=== PATIENT | male | born 1965 | race Caucasian/White ===

== ENCOUNTER 2019-04-30 12:22 | Emergency (ER) | payer MEDICARE ==
[~2019-04-30] VITALS: Ht 185.4 cm; Wt 107.0 kg
[2019-04-30] MEDS ORDERED: SODIUM CHLORIDE FLUSH 10ML SYR IVF ONE (13:00)
--- NOTE | 2019-04-30 13:35 | NUR ---
to room 11
[2019-04-30 13:40] LABS: BASOPHILS # (AUTO) 0.07 x10^3/uL (0-0.1); BASOPHILS % (AUTO) 1 % (0-1); EOSINOPHILS # (AUTO) 0.06 x10^3/uL (0-0.4); EOSINOPHILS % (AUTO) 1 % (1-7); LYMPHOCYTES # (AUTO) 1.21 x10^3/uL (1-3.4); LYMPHOCYTES % (AUTO) 12 % (22-44); MD NO; MEAN CORPUSCULAR HEMOGLOBIN 29.1 pg (27.5-34.5); MEAN CORPUSCULAR HGB CONC 32.5 g/dL (33.2-36.2); MEAN CORPUSCULAR VOLUME 89.4 fL (81-97); MEAN PLATELET VOLUME 8.2 fL (7.4-10.4); MONOCYTES % (AUTO) 11 % (2-9); NEUTROPHILS # (AUTO) 7.39 x10^3/uL (1.8-6.8); NEUTROPHILS % (AUTO) 75 % (42-75); PLATELET COUNT 354 x10^3/uL (130-400); RED BLOOD COUNT 4.46 x10^6/uL (4.38-5.82); RED CELL DISTRIBUTION WIDTH 16.4 % (9.4-14.8)
--- NOTE | 2019-04-30 13:44 | NUR ---
BREAK RN: THIS IS A 54 YEAR OLD MALE WHO CAME FROM [facility] DUE TO ABCESSES. PT STATES HE HAD INFILTRATION AFTER AN ABLATION. LEFT INNER FORARM, 2 CM OPEN AREA, WITH INCREASE REDNESS AND SWELLING. RIGHT UPPER ARM, WITH 2 INCH REDNESS AND SWELLING. PT STATES HIS PAIN IS 10/10. REQUESTS PAIN MEDICATION. EXPLAINED NEED FOR MD TO SEE AND ORDER. PT VERBALIZED UNDERSTANDING
[2019-04-30 13:47] LABS: ALANINE AMINOTRANSFERASE 44 U/L (12-78); ALBUMIN 3.2 g/dL (3.4-5.0); ANION GAP 8 mmol/L (5-15); CALCIUM 8.7 mg/dL (8.5-10.1); CHLORIDE 105 mmol/L (98-107); CREATININE 1.13 mg/dL (0.7-1.3)
[2019-04-30 13:50] LABS: ALKALINE PHOSPHATASE 175 U/L (45-117); BILIRUBIN,TOTAL 0.6 mg/dL (0.2-1.0); TOTAL PROTEIN 7.7 g/dL (6.4-8.2)
[2019-04-30] MEDS ORDERED: OXYcodone/APAP 5/325MG TABLET PO ONE (14:00)
[2019-04-30] MEDS ORDERED: LIDOCAINE-MPF 1%, 5ML INFIL ONE (14:00)
--- NOTE | 2019-04-30 14:02 | NUR ---
REPORT FROM JAMIE VELARDE RN. ASSUMED CARE OF PATIENT AT THIS TIME.
[2019-04-30] MEDS ORDERED: LIDOCAINE-MPF 1%, 5ML ONE (14:15)
[2019-04-30] MEDS ORDERED: OXYcodone/APAP 5/325MG TABLET ONE (14:16)
[2019-04-30 14:23] VITALS: BP 142/80
--- NOTE | 2019-04-30 14:25 | NUR ---
PATIENT PROVIDED ORANGE JUICE AND CRACKERS PER REQUEST, OKAY FOR FLUIDS/FOOD PER ERP. PATIENT AMB WITH STEADY GAIT TO BATHROOM AT THIS TIME.
--- NOTE | 2019-04-30 15:23 | NUR ---
PA AT BEDSIDE FOR I&D.
[2019-04-30] MEDS ORDERED: IBUPROFEN 600 MG TABLET PO ONE (16:00)
[2019-04-30] MEDS ORDERED: IBUPROFEN 200 MG TABLET ONE (16:02)
--- NOTE | 2019-04-30 16:05 | NUR ---
Patient/Caregiver given discharge instructions and they have confirmed that they understand the instructions. Patient ambulatory with steady gait with walker, patient not driving home.
== END 2019-04-30 16:06 | disposition home or self-care (01) ==
LOC: ED 14:41
DX: L02.413 Cutaneous abscess of right upper limb (principal); L02.414 Cutaneous abscess of left upper limb; J44.9 Chronic obstructive pulmonary disease, unspecified; I50.9 Heart failure, unspecified
CPT/HCPCS: 10060; 36415; 80053; 83605; 85025; 87040; 99283

== ENCOUNTER 2019-05-28 18:55 | Emergency (ER) | payer MEDICARE ==
[~2019-05-28] VITALS: Ht 185.4 cm; Wt 105.0 kg
--- NOTE | 2019-05-28 19:12 | NUR ---
MILO. REPORT RECEIVED FROM EMS. PT STATES "MT HEART GOING CRAZY SINCE 4PM TODAY." HX OF A-FIB/HTN. +ETOH. C/O COUGH X 1 WEEK WELL. PT'S AOX4. RESPS EVEN AND UNLABORED. ALL MONITORS IN PLACE. CALL LIGHT WITHIN REACH. PA AT BEDSIDE TO EVALUATE AT THIS TIME.
[2019-05-28] MEDS ORDERED: ONDANSETRON ODT 4 MG ONE (19:17)
[2019-05-28] MEDS ORDERED: ALBUTEROL SULFATE 2.5 MG/3 ML ONE (19:24)
--- NOTE | 2019-05-28 19:25 | NUR ---
PT REFUSED LAB. PA NOTIFIED.
--- NOTE | 2019-05-28 19:25 | NUR ---
PT MEDICATED PER EMAR. PT TOLERATED WELL.
[2019-05-28] MEDS ORDERED: ONDANSETRON ODT 4 MG PO ONE (19:30)
[2019-05-28] MEDS ORDERED: ALBUTEROL SULFATE 2.5 MG/3 ML NPPB ONE (19:30)
[2019-05-28 20:43] VITALS: BP 108/66
--- NOTE | 2019-05-28 20:48 | NUR ---
PT REQUESTING PAIN MED. PA NOTIFIED.
[2019-05-28 21:18] LABS: BASOPHILS # (AUTO) 0.03 x10^3/uL (0-0.1); BASOPHILS % (AUTO) 0 % (0-1); EOSINOPHILS # (AUTO) 0.08 x10^3/uL (0-0.4); EOSINOPHILS % (AUTO) 1 % (1-7); LYMPHOCYTES % (AUTO) 10 % (22-44); MD NO; MEAN CORPUSCULAR HEMOGLOBIN 29.4 pg (27.5-34.5); MEAN CORPUSCULAR HGB CONC 32.8 g/dL (33.2-36.2); MEAN CORPUSCULAR VOLUME 89.6 fL (81-97); MEAN PLATELET VOLUME 7.7 fL (7.4-10.4); MONOCYTES # (AUTO) 0.76 x10^3/uL (0.2-0.8); MONOCYTES % (AUTO) 6 % (2-9); NEUTROPHILS # (AUTO) 10.08 x10^3/uL (1.8-6.8); NEUTROPHILS % (AUTO) 83 % (42-75); PLATELET COUNT 254 x10^3/uL (130-400); RED BLOOD COUNT 4.24 x10^6/uL (4.38-5.82); RED CELL DISTRIBUTION WIDTH 15.9 % (9.4-14.8)
[2019-05-28 21:28] LABS: ALANINE AMINOTRANSFERASE 23 U/L (12-78); ALBUMIN 3.1 g/dL (3.4-5.0); ANION GAP 11 mmol/L (5-15); CALCIUM 8.2 mg/dL (8.5-10.1); CHLORIDE 108 mmol/L (98-107); D-DIMER 0.3 ug/mlFEU (0.00-0.52); INTERNATIONAL NORMALIZED RATIO 1.2 (0.93-1.1); PROTHROMBIN TIME 12.5 Seconds (9.6-11.5)
[2019-05-28 21:32] LABS: ALKALINE PHOSPHATASE 160 U/L (45-117); BILIRUBIN,TOTAL 0.4 mg/dL (0.2-1.0); TOTAL PROTEIN 7.3 g/dL (6.4-8.2); TROPONIN I < 0.015 ng/mL (0.000-0.045)
--- NOTE | 2019-05-28 21:47 | NUR ---
URINAL AT BEDSIDE NOW.
--- NOTE | 2019-05-28 22:51 | NUR ---
Patient given discharge instructions and they have confirmed that they understand the instructions. Patient ambulatory with steady gait.
[2019-06-25] MEDS ORDERED: EZET10TA70 PO (15:27)
[2019-06-25] MEDS ORDERED: ACET325T26 PO (15:27)
[2019-06-25] MEDS ORDERED: BENZ-17 PO (15:27)
[2019-06-25] MEDS ORDERED: ALBU18HF PO (15:27)
== END 2019-05-28 22:52 | disposition home or self-care (01) ==
LOC: ED 19:47
DX: R07.89 Other chest pain (principal); F10.120 Alcohol abuse with intoxication, uncomplicated; Z72.9 Problem related to lifestyle, unspecified; R06.02 Shortness of breath; R11.0 Nausea; I11.0 Hypertensive heart disease with heart failure; I50.9 Heart failure, unspecified; J44.9 Chronic obstructive pulmonary disease, unspecified; Z95.1 Presence of aortocoronary bypass graft
CPT/HCPCS: 36415; 71045; 80053; 80307; 83880; 84484; 85025; 85379; 85610; 93005; 94640; 99284; J7613; Q0162

== ENCOUNTER 2019-09-15 15:18 | Emergency (ER) | payer MEDICARE ==
[~2019-09-15] VITALS: Ht 185.4 cm; Wt 150.0 kg
[~2019-09-15 15:18] MED LIST: ACET325T26 PO; ALBU18HF PO; BENZ-17 PO; EZET10TA70 PO
--- NOTE | 2019-09-15 15:33 | NUR ---
SEE TRIAGE NOTE. PT INTOXICATED. WHEN ASKED HOW MUCH PT DRANK HE STATES WITH SLURRED SPEECH, "NOT THAT MUCH" [facility], PT STUMBLED. PT ASSISTED TO LAY DOWN, VSS.
--- NOTE | 2019-09-15 16:15 | NUR ---
PT MTF, UNABLE TO COMPLETE FULL PHYSICAL ASSESSMENT
--- NOTE | 2019-09-15 18:36 | NUR ---
PT CONTINUES TO REST ON GURNEY, VISIBLE CHEST RISE AND FALL NOTED, PT ARROUSABLE TO SPEECH. NAD NOTED
--- NOTE | 2019-09-15 18:46 | NUR ---
Pt report from Violette reid. This rn to assume care of pt.
--- NOTE | 2019-09-15 18:49 | NUR ---
Pt sleeping comfortabl on bismark. Rr even and unlabored. Nadn.
[2019-09-15 18:57] VITALS: BP 153/90
--- NOTE | 2019-09-15 18:57 | NUR ---
Pt responsive to verbal stimuli. Denies any needs at this time.
--- NOTE | 2019-09-15 19:11 | NUR ---
Pt expressing interst to leave. States would not like to wait for d/c instructions. Requesting taxi voucher. Given upon request.
--- NOTE | 2019-09-15 19:11 | NUR ---
Pt amb w/ steady gait to d/c.
== END 2019-09-16 02:16 | disposition home or self-care (01) ==
LOC: ED 09-16 01:56
DX: F10.120 Alcohol abuse with intoxication, uncomplicated (principal); I11.0 Hypertensive heart disease with heart failure; I50.9 Heart failure, unspecified; J44.9 Chronic obstructive pulmonary disease, unspecified; I49.9 Cardiac arrhythmia, unspecified; F17.200 Nicotine dependence, unspecified, uncomplicated; Z72.9 Problem related to lifestyle, unspecified; Z95.1 Presence of aortocoronary bypass graft; Y90.9 Presence of alcohol in blood, level not specified
CPT/HCPCS: 99283

== ENCOUNTER 2019-09-21 18:26 | Inpatient (IN) | payer MEDICARE ==
[~2019-09-21] VITALS: Ht 185.4 cm; Wt 105.6 kg
[2019-09-21] MEDS ORDERED: SODIUM CHLORIDE FLUSH 10ML SYR IVF ONE ×2 (19:00→19:30)
[2019-09-21] MEDS ORDERED: SODIUM CHLORIDE 0.9% 1,000ML IVBOLUS ONE (19:00)
[2019-09-21] MEDS ORDERED: methylPREDNISolone SOD SUCC 125 MG/2 ML IV ONE (19:00)
[2019-09-21] MEDS ORDERED: ALBUTEROL/IPRATROPIUM 2.5MG/0.5MG, 3 ML NPPB ONE (19:00)
--- NOTE | 2019-09-21 19:03 | NUR ---
SEE TRIAGE NOTE. PT ON ALL ROOM MONITORING DEVICES. VSS, MANUAL BP REQUIRED-MONITOR WOULDN'T READ CORRECTLY. PT IN NAD, LABS DRAWN INCLUDING BC X 2. RT AT BS FOR NEB TX. CALL LIGHT WITHIN REACH, WARM BLANKET PROVIDED W/NORBERTO WARMER.
[2019-09-21 19:17] LABS: BASOPHILS # (AUTO) 0.01 x10^3/uL (0-0.1); BASOPHILS % (AUTO) 0 % (0-1); EOSINOPHILS # (AUTO) 0.01 x10^3/uL (0-0.4); EOSINOPHILS % (AUTO) 0 % (1-7); LYMPHOCYTES # (AUTO) 0.92 x10^3/uL (1-3.4); LYMPHOCYTES % (AUTO) 6 % (22-44); MD NO; MEAN CORPUSCULAR HEMOGLOBIN 27.8 pg (27.5-34.5); MEAN CORPUSCULAR HGB CONC 32.6 g/dL (33.2-36.2); MEAN CORPUSCULAR VOLUME 85.3 fL (81-97); MEAN PLATELET VOLUME 7.8 fL (7.4-10.4); MONOCYTES # (AUTO) 0.65 x10^3/uL (0.2-0.8); MONOCYTES % (AUTO) 4 % (2-9); NEUTROPHILS # (AUTO) 14.32 x10^3/uL (1.8-6.8); NEUTROPHILS % (AUTO) 90 % (42-75); PLATELET COUNT 260 x10^3/uL (130-400); RED BLOOD COUNT 3.62 x10^6/uL (4.38-5.82); RED CELL DISTRIBUTION WIDTH 18.9 % (9.4-14.8)
[2019-09-21 19:28] LABS: INTERNATIONAL NORMALIZED RATIO 0.97 (0.93-1.1); PROTHROMBIN TIME 10.2 Seconds (9.6-11.5)
[2019-09-21 19:29] LABS: ALANINE AMINOTRANSFERASE 45 U/L (12-78); ALBUMIN 3.1 g/dL (3.4-5.0); ANION GAP 8 mmol/L (5-15); CALCIUM 8.3 mg/dL (8.5-10.1); CHLORIDE 102 mmol/L (98-107); CREATININE 0.82 mg/dL (0.7-1.3)
[2019-09-21] MEDS ORDERED: LORazepam 2 MG/ML, 1ML IVPush PRN (19:30)
[2019-09-21] MEDS ORDERED: TRAM50TA2 PO (19:33)
[2019-09-21] MEDS ORDERED: RIVA20TA PO (19:33)
[2019-09-21 19:34] LABS: ALKALINE PHOSPHATASE 90 U/L (45-117); BILIRUBIN,TOTAL 0.5 mg/dL (0.2-1.0); T4 (THYROXINE) 4.7 mcg/dL (4.5-12.1); TOTAL PROTEIN 6.6 g/dL (6.4-8.2); TROPONIN I < 0.015 ng/mL (0.000-0.045)
[2019-09-21] MEDS ORDERED: AMLO-150 PO (19:37)
[2019-09-21] MEDS ORDERED: LISI-170 PO (19:37)
[2019-09-21] MEDS ORDERED: SOTA160T PO (19:37)
[2019-09-21] MEDS ORDERED: ATOR80TA PO (19:37)
[2019-09-21] MEDS ORDERED: METO50TA82 PO (19:37)
[2019-09-21] MEDS ORDERED: FLUT1DIS3 INH (19:37)
[2019-09-21] MEDS ORDERED: methylPREDNISolone SOD SUCC 125 MG/2 ML ONE (19:50)
--- NOTE | 2019-09-21 19:57 | NUR ---
PT SLEEPING, NAD. IV PLACED, NS BOLUS INFUSING, MED ADMINISTERED PER ERP ORDER. MED REC COMPLETED. REPORT TO JEANNIE MONIQUE.
--- NOTE | 2019-09-21 20:01 | NUR ---
Recieved report from shellie Crespo patient care. Patient resting comfortably, vital signs stable. Awaiting disposition
[2019-09-21 21:25] VITALS: BP 148/90
[2019-09-21] MEDS ORDERED: SODIUM CHLORIDE 0.9% 1,000 ML IV SCH (21:58)
[2019-09-21] MEDS ORDERED: ONDANSETRON 2MG/ML, 2ML IVPush PRN (22:00)
[2019-09-21] MEDS ORDERED: PROMETHAZINE 25 MG/ML, 1ML IM PRN (22:00)
[2019-09-21] MEDS ORDERED: ONDANSETRON ODT 4 MG PO PRN (22:00)
[2019-09-21] MEDS ORDERED: BISACODYL 10 MG SUPP PR PRN (22:00)
[2019-09-21] MEDS ORDERED: hydrALAzine 20 MG/ML, 1ML IVPush PRN (22:00)
[2019-09-21] MEDS ORDERED: POLYETHYLENE GLYCOL 17 GM PACKET PO PRN (22:00)
[2019-09-21] MEDS ORDERED: ACETAMINOPHEN 325 MG TABLET PO PRN (22:00)
[2019-09-21] MEDS ORDERED: ENOXAPARIN 40 MG/0.4 ML SQ SCH (22:00)
[2019-09-21] MEDS ORDERED: DOCUSATE 100 MG CAPSULE PO PRN (22:00)
[2019-09-21] MEDS ORDERED: morphine SULFATE 10 MG/ML, 1ML IVPush PRN (22:00)
[2019-09-21 22:26] VITALS: BP 156/93
[2019-09-21] MEDS: ATORVASTATIN 80 MG TABLET PO SCH (22:29)
[2019-09-21] MEDS: ALBUTEROL SULFATE 2.5 MG/3 ML NPPB SCH (22:30)
[2019-09-21] MEDS: BUDESONIDE 0.5 MG/2 ML INHA NPPB SCH (22:30)
[2019-09-21] MEDS: METOPROLOL TARTRATE 50 MG TABLET PO SCH (22:30)
[2019-09-21] MEDS ORDERED: ALBUTEROL SULFATE 2.5 MG/3 ML NPPB PRN (22:30)
[2019-09-21] MEDS: DOXYCYCLINE 100MG TABLET PO SCH (22:30)
[2019-09-21 22:46] LABS: FREE T4 (FREE THYROXINE) 0.97 ng/dL (0.76-1.46)
[2019-09-21 22:49] LABS: HEMOGLOBIN A1C 5.5 % (4.2-6.3)
[2019-09-21] MEDS: SOTALOL 80MG TABLET PO SCH (22:53)
[2019-09-22] MEDS: OXYcodone IR 5MG TABLET PO PRN ×6 (00:19→22:39)
[2019-09-22 00:56] VITALS: BP 132/77
[2019-09-22 05:38] LABS: BASOPHILS # (AUTO) 0.14 x10^3/uL (0-0.1); BASOPHILS % (AUTO) 1 % (0-1); EOSINOPHILS % (AUTO) 0 % (1-7); LYMPHOCYTES # (AUTO) 0.43 x10^3/uL (1-3.4); LYMPHOCYTES % (AUTO) 3 % (22-44); MD NO; MEAN CORPUSCULAR HEMOGLOBIN 28.6 pg (27.5-34.5); MEAN CORPUSCULAR HGB CONC 32.6 g/dL (33.2-36.2); MEAN CORPUSCULAR VOLUME 87.7 fL (81-97); MEAN PLATELET VOLUME 8.4 fL (7.4-10.4); MONOCYTES # (AUTO) 0.36 x10^3/uL (0.2-0.8); MONOCYTES % (AUTO) 3 % (2-9); NEUTROPHILS % (AUTO) 93 % (42-75); PLATELET COUNT 229 x10^3/uL (130-400); RED BLOOD COUNT 3.23 x10^6/uL (4.38-5.82); RED CELL DISTRIBUTION WIDTH 19.2 % (9.4-14.8)
[2019-09-22 05:47] LABS: CHLORIDE 102 mmol/L (98-107)
[2019-09-22 05:53] LABS: ALANINE AMINOTRANSFERASE 43 U/L (12-78); ALBUMIN 2.8 g/dL (3.4-5.0); ALKALINE PHOSPHATASE 84 U/L (45-117); ANION GAP 4 mmol/L (5-15); BILIRUBIN,TOTAL 0.6 mg/dL (0.2-1.0); CALCIUM 8.1 mg/dL (8.5-10.1); CHOL/HDL RATIO 1.8; CHOLESTEROL, TOTAL 107 mg/dL (140-239); HDL CHOL % 57 % (26-37); HDL CHOLESTEROL (DIRECT) 61 mg/dL (40-60); LDL CHOLESTEROL,CALCULATED 36 mg/dL (54-169); LDL/HDL RATIO 0.6 (0.5-3.0); TOTAL PROTEIN 6.2 g/dL (6.4-8.2); TRIGLYCERIDES 49 mg/dL (50-200); VLDL CHOLESTEROL 10 mg/dL (0-25)
[2019-09-22] MEDS: BUDESONIDE 0.5 MG/2 ML INHA NPPB SCH ×2 (06:47→19:22)
[2019-09-22] MEDS: ALBUTEROL SULFATE 2.5 MG/3 ML NPPB SCH ×3 (06:47→19:22)
[2019-09-22 08:00] VITALS: BP 135/77
[2019-09-22] MEDS ORDERED: MAGNESIUM SULFATE PMX 2GM/50ML 50 ML IV ONE (08:30)
[2019-09-22] MEDS: METOPROLOL TARTRATE 50 MG TABLET PO SCH ×2 (08:32→20:22)
[2019-09-22] MEDS: AMLODIPINE 5 MG TABLET PO SCH (08:32)
[2019-09-22] MEDS: DOXYCYCLINE 100MG TABLET PO SCH ×2 (08:32→20:22)
[2019-09-22] MEDS: LISINOPRIL 20 MG TABLET PO SCH (08:32)
[2019-09-22] MEDS: EZETIMIBE 10 MG TABLET PO SCH (08:32)
[2019-09-22] MEDS: SOTALOL 80MG TABLET PO SCH ×2 (08:32→20:23)
[2019-09-22] MEDS: OMEPRAZOLE 20 MG CAPSULE.DR PO SCH (09:56)
[2019-09-22] MEDS ORDERED: OMNIPAQUE 350 MG/ML, 100ML BOTTLE ONE (10:02)
[2019-09-22 14:49] VITALS: BP 126/71
[2019-09-22] MEDS ORDERED: RIVAROXABAN 20 MG TABLET PO SCH (17:00)
[2019-09-22 20:17] VITALS: BP 127/58
[2019-09-22] MEDS: ATORVASTATIN 80 MG TABLET PO SCH (20:22)
[2019-09-23 01:06] VITALS: BP 134/73
[2019-09-23] MEDS: OXYcodone IR 5MG TABLET PO PRN ×2 (02:41→08:01)
[2019-09-23] MEDS: ALBUTEROL SULFATE 2.5 MG/3 ML NPPB SCH ×2 (03:00→07:50)
[2019-09-23 04:53] LABS: ALANINE AMINOTRANSFERASE 35 U/L (12-78); ALBUMIN 2.7 g/dL (3.4-5.0); ANION GAP 4 mmol/L (5-15); CALCIUM 8.5 mg/dL (8.5-10.1); CHLORIDE 103 mmol/L (98-107)
[2019-09-23 04:56] LABS: ALKALINE PHOSPHATASE 74 U/L (45-117); BILIRUBIN,TOTAL 0.6 mg/dL (0.2-1.0); CREATININE 0.65 mg/dL (0.7-1.3); TOTAL PROTEIN 6.2 g/dL (6.4-8.2)
[2019-09-23] MEDS: OMEPRAZOLE 20 MG CAPSULE.DR PO SCH (06:14)
[2019-09-23 07:18] VITALS: BP 144/89
[2019-09-23 07:32] LABS: MEAN CORPUSCULAR HEMOGLOBIN 27.6 pg (27.5-34.5); MEAN CORPUSCULAR HGB CONC 31.7 g/dL (33.2-36.2); MEAN PLATELET VOLUME 8.1 fL (7.4-10.4); PLATELET COUNT 226 x10^3/uL (130-400); RED BLOOD COUNT 3.16 x10^6/uL (4.38-5.82); RED CELL DISTRIBUTION WIDTH 19.7 % (9.4-14.8)
[2019-09-23] MEDS: BUDESONIDE 0.5 MG/2 ML INHA NPPB SCH (07:50)
[2019-09-23] MEDS: EZETIMIBE 10 MG TABLET PO SCH (07:59)
[2019-09-23] MEDS: SOTALOL 80MG TABLET PO SCH (08:00)
[2019-09-23] MEDS: METOPROLOL TARTRATE 50 MG TABLET PO SCH (08:00)
[2019-09-23] MEDS: AMLODIPINE 5 MG TABLET PO SCH (08:00)
[2019-09-23] MEDS: DOXYCYCLINE 100MG TABLET PO SCH (08:00)
[2019-09-23] MEDS: LISINOPRIL 20 MG TABLET PO SCH (08:01)
[2019-09-23 08:47] LABS: BASOPHILS # (AUTO) 0.15 x10^3/uL (0-0.1); BASOPHILS % (AUTO) 1 % (0-1); EOSINOPHILS # (AUTO) 0.03 x10^3/uL (0-0.4); EOSINOPHILS % (AUTO) 0 % (1-7); LYMPHOCYTES # (AUTO) 1.07 x10^3/uL (1-3.4); LYMPHOCYTES % (AUTO) 7 % (22-44); MD SCAN; MONOCYTES # (AUTO) 1.06 x10^3/uL (0.2-0.8); MONOCYTES % (AUTO) 7 % (2-9); NEUTROPHILS # (AUTO) 13.76 x10^3/uL (1.8-6.8); NEUTROPHILS % (AUTO) 86 % (42-75)
== END 2019-09-23 12:35 | disposition left against medical advice (07) | DRG 191 ==
LOC: ED 20:34 → EDIP 20:45 → 4WST 21:08
PROVIDERS: ADMIT Internal Medicine; ATTEND Hospitalist
DX: J44.1 Chronic obstructive pulmonary disease with (acute) exacerbation (principal); D68.69 Other thrombophilia; J44.0 Chronic obstructive pulmonary disease with (acute) lower respiratory infection; J20.9 Acute bronchitis, unspecified; S30.0XXA Contusion of lower back and pelvis, initial encounter; D64.9 Anemia, unspecified; E78.5 Hyperlipidemia, unspecified; I11.0 Hypertensive heart disease with heart failure; I25.10 Atherosclerotic heart disease of native coronary artery without angina pectoris; I48.0 Paroxysmal atrial fibrillation; I50.9 Heart failure, unspecified; R29.6 Repeated falls; Z59.0 Homelessness; Z63.8 Other specified problems related to primary support group; Z87.891 Personal history of nicotine dependence; Z95.1 Presence of aortocoronary bypass graft; Z53.29 Procedure and treatment not carried out because of patient's decision for other reasons; W18.39XA Other fall on same level, initial encounter; Y93.89 Activity, other specified; Y92.89 Other specified places as the place of occurrence of the external cause; Y99.8 Other external cause status
CPT/HCPCS: 36415; 70450; 70551; 71045; 74177; 80053; 80061; 80307; 83036; 83735; 83880; 84100; 84436; 84439; 84443; 84484; 85014; 85018; 85025; 85610; 85730; 87040; 87070; 87205; 93005; 94640; G0378; J7613; J7620; J7626; Q9967; J2930; J3475; J7030; J7512

== ENCOUNTER 2019-09-29 16:03 | Inpatient (IN) | payer MEDICARE ==
[~2019-09-29] VITALS: Ht 185.4 cm; Wt 109.8 kg
[~2019-09-29 16:03] MED LIST changes: +AMLO-150 PO; +ATOR80TA PO; +FLUT1DIS3 INH; +LISI-170 PO; +METO50TA82 PO; +RIVA20TA PO; +SOTA160T PO; +TRAM50TA2 PO
--- NOTE | 2019-09-29 16:17 | NUR ---
PT WITH PRODUCTIVE COUGH X1 WEEK, PT REPORTS PRODUCTIVE GREEN SPUTUM. PT REPORTS CP THAT DESCRIBED STABBING /, STATES THIS PAIN HAS BEEN GOING ON FOR ONE WEEK. PT ALSO SOB, CURRENTLY SATING 95% RA. PT TO BP, CARD MONITOR, CONT PULSE OX
[2019-09-29] MEDS ORDERED: ALBUTEROL/IPRATROPIUM 2.5MG/0.5MG, 3 ML NPPB ONE (16:30)
[2019-09-29] MEDS ORDERED: SODIUM CHLORIDE FLUSH 10ML SYR IVF ONE (16:30)
[2019-09-29] MEDS ORDERED: methylPREDNISolone SOD SUCC 125 MG/2 ML IVPush ONE (16:30)
[2019-09-29] MEDS ORDERED: ALBUTEROL SULFATE 2.5 MG/3 ML NPPB ONE ×2 (16:30→18:30)
[2019-09-29] MEDS ORDERED: ALBUTEROL/IPRATROPIUM 2.5MG/0.5MG, 3 ML ONE (16:37)
[2019-09-29] MEDS ORDERED: ALBUTEROL SULFATE 2.5MG/0.5ML ONE (16:37)
[2019-09-29] MEDS ORDERED: methylPREDNISolone SOD SUCC 125 MG/2 ML ONE (16:43)
[2019-09-29] MEDS ORDERED: ACETAMINOPHEN 500 MG TABLET ONE (16:43)
[2019-09-29] MEDS ORDERED: ACETAMINOPHEN 500 MG TABLET PO ONE (17:00)
[2019-09-29 17:09] LABS: ALANINE AMINOTRANSFERASE 37 U/L (12-78); ALBUMIN 3.1 g/dL (3.4-5.0); ANION GAP 8 mmol/L (5-15); CHLORIDE 109 mmol/L (98-107)
[2019-09-29 17:13] LABS: ALKALINE PHOSPHATASE 94 U/L (45-117); BASOPHILS # (AUTO) 0.03 x10^3/uL (0-0.1); BASOPHILS % (AUTO) 0 % (0-1); BILIRUBIN,TOTAL 0.5 mg/dL (0.2-1.0); EOSINOPHILS # (AUTO) 0.14 x10^3/uL (0-0.4); EOSINOPHILS % (AUTO) 2 % (1-7); LYMPHOCYTES # (AUTO) 1.14 x10^3/uL (1-3.4); LYMPHOCYTES % (AUTO) 14 % (22-44); MD NO; MEAN CORPUSCULAR HEMOGLOBIN 28.9 pg (27.5-34.5); MEAN CORPUSCULAR HGB CONC 32.3 g/dL (33.2-36.2); MEAN CORPUSCULAR VOLUME 89.5 fL (81-97); MEAN PLATELET VOLUME 7.5 fL (7.4-10.4); MONOCYTES # (AUTO) 1.16 x10^3/uL (0.2-0.8); MONOCYTES % (AUTO) 15 % (2-9); NEUTROPHILS # (AUTO) 5.49 x10^3/uL (1.8-6.8); NEUTROPHILS % (AUTO) 69 % (42-75); PLATELET COUNT 314 x10^3/uL (130-400); RED BLOOD COUNT 3.51 x10^6/uL (4.38-5.82); RED CELL DISTRIBUTION WIDTH 21.8 % (9.4-14.8); TOTAL PROTEIN 6.6 g/dL (6.4-8.2); TROPONIN I < 0.015 ng/mL (0.000-0.045)
--- NOTE | 2019-09-29 17:21 | NUR ---
FAILED ATTEMPT AT IV ACCESS X2, ASKED ANOTHER RN FOR US GUIDED.
--- NOTE | 2019-09-29 18:00 | NUR ---
IV ACCESS ACHEIVED PT MEDICATED PER DEC. PT OFFERED TYELENOL FOR PAIN, PT BECAME UPSET AND CUSSING AT THIS RN, "THAT AINT GONNA DO FUCKING SHIT, TYLENOL I TOOK THAT AT HOME" WHEN LEAVING THE RM TO UPDATE ERMD, PT CALLED "THAT TEODOROKING IDIOT, ORDERING THAT SHIT", "FUCKING STUPID"
--- NOTE | 2019-09-29 18:25 | NUR ---
ERMUriah AND THIS RN IN TO SPEAK WITH PT, EXPLAINED TO PT THAT HE WILL NOT PRESCRIBE NARCOTICS FOR LUNG PAIN. WE WALK OUT PT YELLED "FUCK YOU" THEN INFORMED PT HE IS NOT TO TALK TO HIM OR STAFF THAT WAY. PT APPOLOGIZED.
[2019-09-29] MEDS ORDERED: ALBUTEROL SULFATE 2.5 MG/3 ML ONE (18:30)
--- NOTE | 2019-09-29 18:50 | NUR ---
received report from KAYDEN Oakes. patient awaiting admission orders.
--- NOTE | 2019-09-29 19:35 | NUR ---
Hosptilist at bedside.
--- NOTE | 2019-09-29 19:45 | NUR ---
ice chips and water provided.
[2019-09-29] MEDS ORDERED: ACETAMINOPHEN 325 MG TABLET PO PRN (20:00)
[2019-09-29] MEDS ORDERED: GUAIFENESIN/DM 200-20MG, 10ML UDC PO PRN (20:00)
[2019-09-29] MEDS ORDERED: DOCUSATE 100 MG CAPSULE PO PRN (20:00)
[2019-09-29] MEDS ORDERED: LIDODERM 5% PATCH TD PRN (20:00)
[2019-09-29] MEDS ORDERED: ONDANSETRON ODT 4 MG PO PRN (20:00)
--- NOTE | 2019-09-29 20:18 | NUR ---
bed assigned. report to KAYDEN Leon.
[2019-09-29 20:31] VITALS: BP 145/87
[2019-09-30] MEDS: methylPREDNISolone SOD SUCC 40 MG/ML IVPush SCH ×2 (00:01→06:13)
[2019-09-30 02:09] VITALS: BP 135/90
[2019-09-30] MEDS: ALBUTEROL SULFATE 2.5 MG/3 ML NPPB SCH ×4 (02:19→20:01)
[2019-09-30 05:53] LABS: MEAN CORPUSCULAR HEMOGLOBIN 28.7 pg (27.5-34.5); MEAN CORPUSCULAR VOLUME 89.6 fL (81-97); MEAN PLATELET VOLUME 7.7 fL (7.4-10.4); PLATELET COUNT 291 x10^3/uL (130-400); RED BLOOD COUNT 3.42 x10^6/uL (4.38-5.82); RED CELL DISTRIBUTION WIDTH 22.4 % (9.4-14.8)
[2019-09-30 06:01] LABS: CHLORIDE 105 mmol/L (98-107)
[2019-09-30 06:11] LABS: ALANINE AMINOTRANSFERASE 41 U/L (12-78); ALBUMIN 3.1 g/dL (3.4-5.0); ALKALINE PHOSPHATASE 102 U/L (45-117); ANION GAP 10 mmol/L (5-15); BILIRUBIN,TOTAL 1.1 mg/dL (0.2-1.0); CALCIUM 8.7 mg/dL (8.5-10.1); CREATININE 0.81 mg/dL (0.7-1.3)
[2019-09-30 06:38] LABS: MD YES
[2019-09-30 06:40] LABS: ANISOCYTOSIS 2+; BAND#(MANUAL) 0.19 x10^3/uL; BANDS%(MANUAL) 3 % (0-7); LYMPH#(MANUAL) 0.31 x10^3/uL (1-3.4); LYMPHS% (MANUAL) 5 % (22-44); MONOS#(MANUAL) 0.12 x10^3/uL (0.3-2.7); MONOS% (MANUAL) 2 % (2-9); OVALOCYTES 1+; POLYCHROMASIA 1+; SEG#(MANUAL) 5.58 x10^3/uL (1.8-6.8); SEGS% (MANUAL) 90 % (42-75)
[2019-09-30 06:41] LABS: <PLATELET ESTIMATE> ADEQUATE; <PLT MORPHOLOGY> NORMAL PLT MORPH
[2019-09-30] MEDS: BUDESONIDE 0.5 MG/2 ML INHA NPPB SCH ×2 (09:07→20:01)
[2019-09-30 10:00] VITALS: BP 193/106
[2019-09-30 10:03] LABS: HEMOGLOBIN A1C 5.5 % (4.2-6.3)
[2019-09-30] MEDS: RIVAROXABAN 20 MG TABLET PO SCH (10:04)
[2019-09-30] MEDS: EZETIMIBE 10 MG TABLET PO SCH (10:04)
[2019-09-30] MEDS ORDERED: LABETALOL 5 MG/ML SYR. (IV ONLY) IVPush PRN ×2 (10:30→17:00)
[2019-09-30] MEDS: methylPREDNISolone SOD SUCC 125 MG/2 ML IVPush SCH ×3 (10:48→23:33)
[2019-09-30] MEDS ORDERED: LISINOPRIL 20 MG TABLET PO SCH (12:30)
[2019-09-30] MEDS ORDERED: AMLODIPINE 5 MG TABLET PO SCH (12:30)
[2019-09-30] MEDS: AMOXICILLIN/CLAV 875-125MG TABLET PO SCH ×2 (12:41→19:54)
[2019-09-30] MEDS: GUAIFENESIN 200 MG TABLET PO SCH ×3 (12:42→19:54)
[2019-09-30] MEDS: DOXYCYCLINE 100MG TABLET PO SCH ×2 (12:42→19:54)
[2019-09-30] MEDS: INSULIN LISPRO 100 UNITS/ML, PEN SQ-INSULIN SCH ×3 (13:06→20:06)
[2019-09-30 15:48] VITALS: BP 184/98
[2019-09-30 17:30] VITALS: BP 164/73
[2019-09-30] MEDS ORDERED: OMNIPAQUE 350 MG/ML, 100ML BOTTLE ONE (17:40)
[2019-09-30 19:06] VITALS: BP 165/95
[2019-09-30] MEDS: METOPROLOL TARTRATE 50 MG TABLET PO SCH (19:54)
[2019-09-30] MEDS: ATORVASTATIN 80 MG TABLET PO SCH ×2 (19:54)
[2019-09-30 23:18] VITALS: BP 148/83
[2019-10-01 00:10] VITALS: BP 140/82
[2019-10-01 01:29] VITALS: BP 153/83
[2019-10-01] MEDS: ALBUTEROL SULFATE 2.5 MG/3 ML NPPB SCH ×5 (02:43→20:20)
[2019-10-01] MEDS: methylPREDNISolone SOD SUCC 125 MG/2 ML IVPush SCH ×5 (05:16→23:27)
[2019-10-01] MEDS: GUAIFENESIN 200 MG TABLET PO SCH ×4 (05:20→20:23)
[2019-10-01 06:51] LABS: MEAN CORPUSCULAR HEMOGLOBIN 28.4 pg (27.5-34.5); MEAN CORPUSCULAR HGB CONC 31.8 g/dL (33.2-36.2); MEAN CORPUSCULAR VOLUME 89.4 fL (81-97); MEAN PLATELET VOLUME 7.8 fL (7.4-10.4); PLATELET COUNT 328 x10^3/uL (130-400); RED BLOOD COUNT 3.53 x10^6/uL (4.38-5.82); RED CELL DISTRIBUTION WIDTH 22.2 % (9.4-14.8)
[2019-10-01 06:57] LABS: ALANINE AMINOTRANSFERASE 41 U/L (12-78); ALBUMIN 2.9 g/dL (3.4-5.0); ANION GAP 8 mmol/L (5-15); CALCIUM 8.7 mg/dL (8.5-10.1); CHLORIDE 104 mmol/L (98-107); CREATININE 0.68 mg/dL (0.7-1.3)
[2019-10-01 06:59] LABS: ALKALINE PHOSPHATASE 100 U/L (45-117); BILIRUBIN,TOTAL 0.7 mg/dL (0.2-1.0); TOTAL PROTEIN 6.7 g/dL (6.4-8.2)
[2019-10-01] MEDS: INSULIN LISPRO 100 UNITS/ML, PEN SQ-INSULIN SCH ×4 (07:00→20:23)
[2019-10-01 07:27] VITALS: BP_SYST 173; BP_SYST 180; BP_DIAS 100; BP_DIAS 111
[2019-10-01] MEDS: RIVAROXABAN 20 MG TABLET PO SCH (08:00)
[2019-10-01] MEDS: METOPROLOL TARTRATE 50 MG TABLET PO SCH ×2 (08:00→20:24)
[2019-10-01] MEDS: AMLODIPINE 10 MG TAB PO SCH (08:00)
[2019-10-01] MEDS: DOXYCYCLINE 100MG TABLET PO SCH ×2 (08:00→20:24)
[2019-10-01] MEDS: LISINOPRIL 40 MG TABLET PO SCH (08:00)
[2019-10-01] MEDS: EZETIMIBE 10 MG TABLET PO SCH (08:00)
[2019-10-01] MEDS: AMOXICILLIN/CLAV 875-125MG TABLET PO SCH (08:01)
[2019-10-01 08:15] LABS: BASOPHILS # (AUTO) 0.01 x10^3/uL (0-0.1); BASOPHILS % (AUTO) 0 % (0-1); EOSINOPHILS # (AUTO) 0.18 x10^3/uL (0-0.4); EOSINOPHILS % (AUTO) 1 % (1-7); LYMPHOCYTES # (AUTO) 0.66 x10^3/uL (1-3.4); LYMPHOCYTES % (AUTO) 3 % (22-44); MD SCAN; MONOCYTES # (AUTO) 0.33 x10^3/uL (0.2-0.8); MONOCYTES % (AUTO) 2 % (2-9); NEUTROPHILS # (AUTO) 18.64 x10^3/uL (1.8-6.8); NEUTROPHILS % (AUTO) 94 % (42-75)
[2019-10-01 09:39] VITALS: BP 154/88
[2019-10-01] MEDS: BUDESONIDE 0.5 MG/2 ML INHA NPPB SCH ×2 (09:40→20:20)
[2019-10-01 12:15] VITALS: BP 162/98
[2019-10-01 19:39] VITALS: BP 153/99
[2019-10-01] MEDS: TRAZODONE 50MG TABLET PO PRN (20:23)
[2019-10-01] MEDS: ATORVASTATIN 80 MG TABLET PO SCH (20:23)
[2019-10-02 01:17] VITALS: BP 159/88
[2019-10-02] MEDS: ALBUTEROL SULFATE 2.5 MG/3 ML NPPB SCH ×4 (02:10→21:15)
[2019-10-02] MEDS: methylPREDNISolone SOD SUCC 125 MG/2 ML IVPush SCH ×3 (06:00→20:53)
[2019-10-02] MEDS: GUAIFENESIN 200 MG TABLET PO SCH ×4 (06:01→20:56)
[2019-10-02] MEDS: INSULIN LISPRO 100 UNITS/ML, PEN SQ-INSULIN SCH ×4 (07:00→20:53)
[2019-10-02] MEDS ORDERED: AMPICILLIN/SULBACTAM 3 GM in SODIUM CHLORIDE 0.9% 100 ML IV SCH (07:30)
[2019-10-02 08:14] VITALS: BP 176/104
[2019-10-02] MEDS: RIVAROXABAN 20 MG TABLET PO SCH (08:32)
[2019-10-02] MEDS: LISINOPRIL 40 MG TABLET PO SCH (08:32)
[2019-10-02] MEDS: AMLODIPINE 10 MG TAB PO SCH (08:32)
[2019-10-02] MEDS: DOXYCYCLINE 100MG TABLET PO SCH ×2 (08:32→20:54)
[2019-10-02] MEDS: METOPROLOL TARTRATE 50 MG TABLET PO SCH ×2 (08:32→20:54)
[2019-10-02] MEDS: EZETIMIBE 10 MG TABLET PO SCH (08:32)
[2019-10-02] MEDS ORDERED: DOXYCYCLINE 100MG TABLET PO SCH (09:00)
[2019-10-02 09:55] LABS: MEAN CORPUSCULAR HGB CONC 31.9 g/dL (33.2-36.2); MEAN CORPUSCULAR VOLUME 90.8 fL (81-97); MEAN PLATELET VOLUME 8.2 fL (7.4-10.4); PLATELET COUNT 317 x10^3/uL (130-400); RED CELL DISTRIBUTION WIDTH 21.8 % (9.4-14.8)
[2019-10-02] MEDS: BUDESONIDE 0.5 MG/2 ML INHA NPPB SCH ×2 (10:03→21:15)
[2019-10-02 10:06] LABS: ANION GAP 8 mmol/L (5-15); CALCIUM 8.5 mg/dL (8.5-10.1); CHLORIDE 102 mmol/L (98-107)
[2019-10-02 10:07] LABS: CREATININE 0.75 mg/dL (0.7-1.3)
[2019-10-02 10:20] LABS: BASOPHILS # (AUTO) 0.01 x10^3/uL (0-0.1); BASOPHILS % (AUTO) 0 % (0-1); EOSINOPHILS # (AUTO) 0.19 x10^3/uL (0-0.4); EOSINOPHILS % (AUTO) 1 % (1-7); LYMPHOCYTES % (AUTO) 3 % (22-44); MD SCAN; MONOCYTES # (AUTO) 0.18 x10^3/uL (0.2-0.8); MONOCYTES % (AUTO) 1 % (2-9); NEUTROPHILS # (AUTO) 18.38 x10^3/uL (1.8-6.8); NEUTROPHILS % (AUTO) 96 % (42-75)
[2019-10-02 10:34] VITALS: BP 149/90
[2019-10-02] MEDS: GABAPENTIN 300 MG CAPSULE PO PRN ×2 (12:25→23:02)
[2019-10-02 13:30] VITALS: BP 145/84
[2019-10-02 20:26] VITALS: BP 169/95
[2019-10-02] MEDS: AMPICILLIN/SULBACTAM 3 GM in SODIUM CHLORIDE 0.9% 100 ML IV SCH (20:45)
[2019-10-02] MEDS: ATORVASTATIN 80 MG TABLET PO SCH (20:54)
[2019-10-02] MEDS: TRAZODONE 50MG TABLET PO PRN (23:04)
[2019-10-03 00:23] VITALS: BP 162/93
[2019-10-03] MEDS: methylPREDNISolone SOD SUCC 125 MG/2 ML IVPush SCH (02:23)
[2019-10-03] MEDS: AMPICILLIN/SULBACTAM 3 GM in SODIUM CHLORIDE 0.9% 100 ML IV SCH ×2 (02:23→09:40)
[2019-10-03] MEDS: ALBUTEROL SULFATE 2.5 MG/3 ML NPPB SCH ×2 (02:31→07:15)
[2019-10-03 05:19] LABS: MEAN CORPUSCULAR HEMOGLOBIN 28.6 pg (27.5-34.5); MEAN CORPUSCULAR HGB CONC 31.8 g/dL (33.2-36.2); MEAN PLATELET VOLUME 8.2 fL (7.4-10.4); PLATELET COUNT 313 x10^3/uL (130-400); RED BLOOD COUNT 3.58 x10^6/uL (4.38-5.82); RED CELL DISTRIBUTION WIDTH 21.9 % (9.4-14.8)
[2019-10-03 05:27] LABS: CHLORIDE 106 mmol/L (98-107)
[2019-10-03 05:33] LABS: ANION GAP 7 mmol/L (5-15); CALCIUM 8.6 mg/dL (8.5-10.1); CREATININE 0.65 mg/dL (0.7-1.3)
[2019-10-03 06:02] LABS: BASOPHILS % (AUTO) 0 % (0-1); EOSINOPHILS # (AUTO) 0.06 x10^3/uL (0-0.4); EOSINOPHILS % (AUTO) 0 % (1-7); LYMPHOCYTES # (AUTO) 0.68 x10^3/uL (1-3.4); LYMPHOCYTES % (AUTO) 5 % (22-44); MD SCAN; MONOCYTES # (AUTO) 0.11 x10^3/uL (0.2-0.8); MONOCYTES % (AUTO) 1 % (2-9); NEUTROPHILS # (AUTO) 14.37 x10^3/uL (1.8-6.8); NEUTROPHILS % (AUTO) 94 % (42-75)
[2019-10-03] MEDS: GUAIFENESIN 200 MG TABLET PO SCH ×2 (06:22→09:26)
[2019-10-03] MEDS: BUDESONIDE 0.5 MG/2 ML INHA NPPB SCH (07:15)
[2019-10-03 08:08] VITALS: BP 165/95
[2019-10-03] MEDS: AMLODIPINE 10 MG TAB PO SCH (09:26)
[2019-10-03] MEDS: DOXYCYCLINE 100MG TABLET PO SCH (09:26)
[2019-10-03] MEDS: LISINOPRIL 40 MG TABLET PO SCH (09:26)
[2019-10-03] MEDS: RIVAROXABAN 20 MG TABLET PO SCH (09:27)
[2019-10-03] MEDS: EZETIMIBE 10 MG TABLET PO SCH (09:27)
[2019-10-03] MEDS: METOPROLOL TARTRATE 50 MG TABLET PO SCH (09:27)
[2019-10-03] MEDS: INSULIN LISPRO 100 UNITS/ML, PEN SQ-INSULIN SCH ×2 (09:41→11:00)
[2019-10-03] MEDS ORDERED: PRED10TA PO (10:11)
[2019-10-03] MEDS ORDERED: AMOX1TAB64 PO (10:11)
[2019-10-03] MEDS ORDERED: DOXY100T PO (10:11)
== END 2019-10-03 13:39 | disposition home or self-care (01) | DRG 191 ==
LOC: ED 17:38 → EDIP 18:24 → 3N 20:29 → DCLOUNGE 10-03 13:24
PROVIDERS: ADMIT Internal Medicine; ATTEND Hospitalist
DX: J44.0 Chronic obstructive pulmonary disease with (acute) lower respiratory infection (principal); D68.59 Other primary thrombophilia; J44.1 Chronic obstructive pulmonary disease with (acute) exacerbation; D64.9 Anemia, unspecified; E78.5 Hyperlipidemia, unspecified; F17.210 Nicotine dependence, cigarettes, uncomplicated; I11.0 Hypertensive heart disease with heart failure; I25.10 Atherosclerotic heart disease of native coronary artery without angina pectoris; I48.0 Paroxysmal atrial fibrillation; I50.9 Heart failure, unspecified; J20.9 Acute bronchitis, unspecified; Z76.5 Malingerer [conscious simulation]; Z80.1 Family history of malignant neoplasm of trachea, bronchus and lung; Z95.1 Presence of aortocoronary bypass graft; R91.1 Solitary pulmonary nodule
CPT/HCPCS: 36415; 71045; 71275; 80048; 80053; 80307; 82164; 82962; 83036; 83735; 84100; 84484; 85025; 85379; 86480; 86606; 86635; 86698; 87040; 93005; 94060; 94640; 99285; G0378; J0295; J7613; J7620; J7626; Q9967; J1815; J2920; J2930; J7512

== ENCOUNTER 2019-10-08 06:59 | Emergency (ER) | payer MEDICARE ==
[~2019-10-08] VITALS: Ht 185.4 cm; Wt 110.0 kg
[~2019-10-08 06:59] MED LIST changes: +AMOX1TAB64 PO; +DOXY100T PO; +PRED10TA PO
[2019-10-08 07:00] VITALS: BP 105/67
[2019-10-08] MEDS ORDERED: ALBUTEROL/IPRATROPIUM 2.5MG/0.5MG, 3 ML NPPB ONE (07:30)
[2019-10-08] MEDS ORDERED: SODIUM CHLORIDE FLUSH 10ML SYR IVF ONE (07:30)
--- NOTE | 2019-10-08 07:30 | NUR ---
RT AT BEDSIDE-ADMINISTERING NEB
[2019-10-08] MEDS ORDERED: ALBUTEROL/IPRATROPIUM 2.5MG/0.5MG, 3 ML ONE (07:39)
[2019-10-08 07:59] LABS: BASOPHILS # (AUTO) 0.03 x10^3/uL (0-0.1); BASOPHILS % (AUTO) 0 % (0-1); EOSINOPHILS # (AUTO) 0.11 x10^3/uL (0-0.4); EOSINOPHILS % (AUTO) 1 % (1-7); LYMPHOCYTES # (AUTO) 1.13 x10^3/uL (1-3.4); LYMPHOCYTES % (AUTO) 9 % (22-44); MD NO; MEAN CORPUSCULAR HGB CONC 32.1 g/dL (33.2-36.2); MEAN CORPUSCULAR VOLUME 87.3 fL (81-97); MEAN PLATELET VOLUME 7.4 fL (7.4-10.4); MONOCYTES # (AUTO) 0.83 x10^3/uL (0.2-0.8); MONOCYTES % (AUTO) 7 % (2-9); NEUTROPHILS # (AUTO) 10.38 x10^3/uL (1.8-6.8); NEUTROPHILS % (AUTO) 83 % (42-75); PLATELET COUNT 306 x10^3/uL (130-400); RED BLOOD COUNT 3.72 x10^6/uL (4.38-5.82); RED CELL DISTRIBUTION WIDTH 21.1 % (9.4-14.8)
[2019-10-08 08:02] LABS: ANION GAP 7 mmol/L (5-15); CALCIUM 7.8 mg/dL (8.5-10.1); CHLORIDE 108 mmol/L (98-107); CREATININE 0.62 mg/dL (0.7-1.3)
[2019-10-08 08:03] LABS: ALANINE AMINOTRANSFERASE 98 U/L (12-78); ALBUMIN 2.7 g/dL (3.4-5.0)
[2019-10-08 08:07] LABS: ALKALINE PHOSPHATASE 108 U/L (45-117); BILIRUBIN,TOTAL 0.7 mg/dL (0.2-1.0); TOTAL PROTEIN 6.1 g/dL (6.4-8.2); TROPONIN I < 0.015 ng/mL (0.000-0.045)
--- NOTE | 2019-10-08 08:15 | NUR ---
AMELIA WASHINGTON PATIENT REPORTS "I FEEL MUCH BETTER"
[2019-10-08] MEDS ORDERED: OXYcodone/APAP 5/325MG TABLET ONE (08:28)
[2019-10-08] MEDS ORDERED: OXYcodone/APAP 5/325MG TABLET PO ONE (08:30)
--- NOTE | 2019-10-08 08:57 | NUR ---
DISCHARGED HOME DESPITE RECENT NARCOTIC ADMIN PATIENT DOES NOT APPEAR NAIVE TO NARCOTICS AND TAKING TAXI HOME (PROVIDED TAXI VOUCHER)
[2019-10-12] MEDS ORDERED: GUAI600T31 PO (14:55)
[2019-10-12] MEDS ORDERED: AMLO-150 PO (14:55)
[2019-10-12] MEDS ORDERED: AZIT500T10 PO (14:55)
[2019-10-12] MEDS ORDERED: PRED10TA PO (14:55)
== END 2019-10-08 09:00 | disposition home or self-care (01) ==
LOC: ED 08:15
DX: J44.1 Chronic obstructive pulmonary disease with (acute) exacerbation (principal); J20.9 Acute bronchitis, unspecified; D64.89 Other specified anemias; I11.0 Hypertensive heart disease with heart failure; I50.9 Heart failure, unspecified; I48.91 Unspecified atrial fibrillation; F17.200 Nicotine dependence, unspecified, uncomplicated; Z95.1 Presence of aortocoronary bypass graft
CPT/HCPCS: 36415; 71045; 80053; 83880; 84484; 85025; 93005; 94640; 99284; J7512; J7620

== ENCOUNTER → 2019-10-10 | Outpatient (CLI) | payer MEDICARE ==
[~2019-10-10] MED LIST changes: +AZIT500T10 PO; +GUAI600T31 PO
== END | disposition home or self-care (01) ==
LOC: PETCFH 12:20
PROVIDERS: ATTEND Internal Medicine
DX: R91.8 Other nonspecific abnormal finding of lung field (principal); J98.11 Atelectasis
CPT/HCPCS: 78815; A9552

== ENCOUNTER 2019-10-26 07:40 | Emergency (ER) | payer MEDICARE ==
[~2019-10-26] VITALS: Ht 185.4 cm; Wt 129.0 kg
--- NOTE | 2019-10-26 07:51 | NUR ---
BIB [facility], CP STARTING 45MIN FISHER DIVER NET PER PT. PT DESCRIBES SHARP L SIDED AND RADIATES TO L SHOULDER. PT RATES PAIN 8/10. PT RECIEVED 3 NITRO FISHER DIVER NET, STATES NO RELIEF OF PAIN. PT WITH ALLERGY TO ASA.
[2019-10-26] MEDS ORDERED: SODIUM CHLORIDE FLUSH 10ML SYR IVF ONE (08:00)
[2019-10-26] MEDS ORDERED: MORPHINE SULFATE 4 MG/ML, 1ML IVPush PRN (08:00)
[2019-10-26] MEDS ORDERED: ONDANSETRON 2MG/ML, 2ML IVPush ONE (08:00)
[2019-10-26] MEDS ORDERED: ONDANSETRON 2MG/ML, 2ML ONE (08:06)
[2019-10-26] MEDS ORDERED: MORPHINE SULFATE 4 MG/ML, 1ML ONE (08:06)
[2019-10-26 08:30] LABS: BASOPHILS % (AUTO) 1 % (0-1); EOSINOPHILS # (AUTO) 0.13 x10^3/uL (0-0.4); EOSINOPHILS % (AUTO) 2 % (1-7); LYMPHOCYTES # (AUTO) 1.08 x10^3/uL (1-3.4); LYMPHOCYTES % (AUTO) 13 % (22-44); MD NO; MEAN CORPUSCULAR HGB CONC 32.6 g/dL (33.2-36.2); MEAN CORPUSCULAR VOLUME 86.1 fL (81-97); MONOCYTES # (AUTO) 0.74 x10^3/uL (0.2-0.8); MONOCYTES % (AUTO) 9 % (2-9); NEUTROPHILS # (AUTO) 6.21 x10^3/uL (1.8-6.8); NEUTROPHILS % (AUTO) 75 % (42-75); PLATELET COUNT 362 x10^3/uL (130-400); RED BLOOD COUNT 3.71 x10^6/uL (4.38-5.82); RED CELL DISTRIBUTION WIDTH 21.2 % (9.4-14.8)
[2019-10-26] MEDS ORDERED: ALBUTEROL/IPRATROPIUM 2.5MG/0.5MG, 3 ML NEB ONE (08:30)
--- NOTE | 2019-10-26 08:33 | NUR ---
PT MEDICATED PER DEC. ERMD IN TO ZAKIYA PT. BREATHING TREATMENT ORDERED.
[2019-10-26 08:41] LABS: ALANINE AMINOTRANSFERASE 45 U/L (12-78); ALBUMIN 3.2 g/dL (3.4-5.0); ANION GAP 8 mmol/L (5-15); CALCIUM 8.3 mg/dL (8.5-10.1); CHLORIDE 109 mmol/L (98-107); CREATININE 0.68 mg/dL (0.7-1.3)
[2019-10-26] MEDS ORDERED: ALBUTEROL/IPRATROPIUM 2.5MG/0.5MG, 3 ML ONE (08:42)
[2019-10-26 08:45] LABS: ALKALINE PHOSPHATASE 136 U/L (45-117); BILIRUBIN,TOTAL 0.4 mg/dL (0.2-1.0); TOTAL PROTEIN 7.1 g/dL (6.4-8.2); TROPONIN I < 0.015 ng/mL (0.000-0.045)
--- NOTE | 2019-10-26 09:28 | NUR ---
PT RESTING ON [employer]. GIVEN ICE CHIPS PER REQUEST, NAD NOTED
[2019-10-26] MEDS ORDERED: CYCLOBENZAPRINE 10 MG TABLET PO ONE (10:00)
[2019-10-26] MEDS ORDERED: ACETAMINOPHEN 500 MG TABLET PO ONE (10:00)
[2019-10-26] MEDS ORDERED: CYCLOBENZAPRINE 10 MG TABLET ONE (10:05)
[2019-10-26] MEDS ORDERED: ACETAMINOPHEN 500 MG TABLET ONE (10:05)
[2019-10-26 10:19] VITALS: BP 142/86
--- NOTE | 2019-10-26 10:20 | NUR ---
PT MEDICATED WITH ADDITIONAL MEDICATION PER MD ORDERS, PT REQUESTING ORANGE JUICE, ICE CHIPS FOR SECOND TIME, MEAL TRAY. WILL ASK PROVIDER IF CAN FEED PT. PT PLACED FOR RECHECK
[2019-10-26 11:01] LABS: TROPONIN I < 0.015 ng/mL (0.000-0.045)
--- NOTE | 2019-10-26 12:07 | NUR ---
BREAK NOTE: DC'ED BY PRIMARY RN.
== END 2019-10-26 12:09 | disposition home or self-care (01) ==
LOC: ED 10:26
DX: J44.1 Chronic obstructive pulmonary disease with (acute) exacerbation (principal); I11.0 Hypertensive heart disease with heart failure; I48.91 Unspecified atrial fibrillation; Z79.899 Other long term (current) drug therapy
CPT/HCPCS: 36415; 71046; 80053; 83880; 84484; 85025; 93005; 94640; 96374; 96375; 99284; J2270; J2405; J7620

== ENCOUNTER 2019-12-01 17:09 | Emergency (ER) | payer MEDICARE ==
[~2019-12-01] VITALS: Ht 185.4 cm; Wt 106.0 kg
[~2019-12-01 17:09] MED LIST changes: +AMOX1TAB12 PO; +CARV6.2512 PO; +INSU100I11 SQ-INSULIN; +LISI1POW PO; +METF850T PO
[2019-12-01 17:51] VITALS: BP 159/89
--- NOTE | 2019-12-01 17:52 | NUR ---
TASK RN: FIRST CONTACT WITH PT. PT AWAKE/ALERT, SITTING UP RIGHT IN GURNEY SPEAKING IN FULL SENTENCES. SPO2 >90% ON RA. RR WNL AND WO INCREASED WOB. PT REPORTS 8 'RIGHT LUNG PAIN', PT MEDICATED PER EMAR. BP/SPO2/ECG MONITORING IN PLACE. SINUS TACH ON MONITOR
[2019-12-01] MEDS ORDERED: OXYcodone/APAP 10/325MG TABLET ONE (17:54)
[2019-12-01] MEDS ORDERED: OXYcodone/APAP 10/325MG TABLET PO ONE (18:00)
[2019-12-01] MEDS ORDERED: ALBUTEROL/IPRATROPIUM 2.5MG/0.5MG, 3 ML NPPB ONE (18:00)
== END 2019-12-01 18:19 | disposition home or self-care (01) ==
LOC: ED 18:08
DX: J43.9 Emphysema, unspecified (principal); R09.1 Pleurisy; I48.91 Unspecified atrial fibrillation; I11.0 Hypertensive heart disease with heart failure; I50.9 Heart failure, unspecified; Z87.891 Personal history of nicotine dependence; Z95.1 Presence of aortocoronary bypass graft
CPT/HCPCS: 71045; 94640; 99283; J7512; J7620

== ENCOUNTER 2019-12-02 03:03 | Emergency (ER) | payer MEDICARE ==
[2019-12-02] MEDS ORDERED: LORazepam 1MG TABLET ONE (03:26)
[2019-12-02] MEDS ORDERED: LORazepam 1MG TABLET PO ONE (03:30)
--- NOTE | 2019-12-02 03:55 | NUR ---
PT STATES HE HAS NOT URINATED SINCE 1600 YESTERDAY, BLADDER SCAN SHOWED 210 ML
[2019-12-02 05:17] VITALS: BP 178/90
--- NOTE | 2019-12-02 05:30 | NUR ---
spacer and education provided to patient
== END 2019-12-02 05:37 ==
LOC: ED 03:28
DX: J44.1 Chronic obstructive pulmonary disease with (acute) exacerbation (principal); I11.0 Hypertensive heart disease with heart failure; I50.9 Heart failure, unspecified; I48.91 Unspecified atrial fibrillation; R00.0 Tachycardia, unspecified; R07.89 Other chest pain; J96.90 Respiratory failure, unspecified, unspecified whether with hypoxia or hypercapnia; Z95.1 Presence of aortocoronary bypass graft; Z87.891 Personal history of nicotine dependence
CPT/HCPCS: 71046; 93005; 99283

== ENCOUNTER 2019-12-09 23:22 | Emergency (ER) | payer MEDICARE ==
[~2019-12-09] VITALS: Ht 185.4 cm; Wt 110.4 kg
--- NOTE | 2019-12-09 23:30 | NUR ---
MD at bedside. Pt on monitors.
--- NOTE | 2019-12-09 23:40 | NUR ---
Lab at bedside for draw. Pt on 2L NC.
[2019-12-09 23:55] LABS: BASOPHILS # (AUTO) 0.03 x10^3/uL (0-0.1); BASOPHILS % (AUTO) 0 % (0-1); EOSINOPHILS # (AUTO) 0.11 x10^3/uL (0-0.4); EOSINOPHILS % (AUTO) 1 % (1-7); LYMPHOCYTES % (AUTO) 24 % (22-44); MD NO; MEAN CORPUSCULAR HEMOGLOBIN 26.3 pg (27.5-34.5); MEAN CORPUSCULAR HGB CONC 31.9 g/dL (33.2-36.2); MEAN CORPUSCULAR VOLUME 82.5 fL (81-97); MEAN PLATELET VOLUME 7.9 fL (7.4-10.4); MONOCYTES % (AUTO) 8 % (2-9); NEUTROPHILS # (AUTO) 7.89 x10^3/uL (1.8-6.8); NEUTROPHILS % (AUTO) 66 % (42-75); PLATELET COUNT 319 x10^3/uL (130-400); RED BLOOD COUNT 4.42 x10^6/uL (4.38-5.82); RED CELL DISTRIBUTION WIDTH 18.6 % (9.4-14.8)
[2019-12-10 00:03] LABS: ALBUMIN 3.6 g/dL (3.4-5.0); ANION GAP 11 mmol/L (5-15); CALCIUM 8.8 mg/dL (8.5-10.1); CHLORIDE 104 mmol/L (98-107); CREATININE 0.98 mg/dL (0.7-1.3)
[2019-12-10 00:09] VITALS: BP 105/75
--- NOTE | 2019-12-10 00:09 | NUR ---
Pt oxygen turned off. Pt 97% RA.
--- NOTE | 2019-12-10 00:28 | NUR ---
Pt noted to be 84-86% RA while sleeping. Pt awakened. Pt reports hx of COPD and sleep apnea. Pt reports he is supposed to wear oxygen at night. Pt placed on 1.5L NC for return of sats >92%.
--- NOTE | 2019-12-10 01:21 | NUR ---
Pt seen repositioning self as needed. Pt remains on full monitors.
--- NOTE | 2019-12-10 01:36 | NUR ---
Pt keeping eyes closed, but responds appropriately motor commands.
--- NOTE | 2019-12-10 03:28 | NUR ---
Pt speaking more clearly. POC BS 87. Pt asking nurse to turn the lights off, this RN replies, "no and that it was time to get read for d/c.". RN handed pt back his phone.
--- NOTE | 2019-12-10 03:31 | NUR ---
Pt seen sitting up and pulling off his VS leads and putting his shoes on. Pt on RA.
--- NOTE | 2019-12-10 03:45 | NUR ---
Pt d/c'd to self care. Pt ambulatory to and from restroom and from room to lobby. Cab called for pt. Pt educated on process and sent to ER lobby to wait. Pt alert and oriented. FRAN.
== END 2019-12-10 03:47 | disposition home or self-care (01) ==
LOC: ED 12-10 03:40
DX: F10.220 Alcohol dependence with intoxication, uncomplicated (principal); Z72.9 Problem related to lifestyle, unspecified; I11.0 Hypertensive heart disease with heart failure; I50.9 Heart failure, unspecified; I48.91 Unspecified atrial fibrillation; J44.9 Chronic obstructive pulmonary disease, unspecified; Z87.891 Personal history of nicotine dependence; Z95.1 Presence of aortocoronary bypass graft; Y90.9 Presence of alcohol in blood, level not specified
CPT/HCPCS: 36415; 80048; 80307; 82040; 82962; 85025; 93005; 99284; 99285

== ENCOUNTER 2019-12-12 16:20 | Emergency (ER) | payer MEDICARE ==
--- NOTE | 2019-12-12 16:30 | NUR ---
PT DROWSY, OPENS EYES TO NAME, REPLIES "NO" TO QUESIONS (INCLUDING "CAN YOU SAY NO"). PT DENIED ETOH INTAKE, ALLERGIES, MEDS. SIDE RAILS UP X2.
--- NOTE | 2019-12-12 16:35 | NUR ---
PT SWINGING AT STAFF. INSTRUCTED PT "NO HITTING". LAB DRAW ON HOLD FOR NOW. Addendum: 12/12/19 at 1636 by LES WILL NOTIFY ERP
[2019-12-12 17:32] VITALS: BP 107/75
--- NOTE | 2019-12-12 17:32 | NUR ---
BREAK RN: PT RESTING IN ROOM. VS STABLE. WILL CONTINUE TO MONITOR WHILE PRIMARY RN IS ON BREAK.
--- NOTE | 2019-12-12 18:17 | NUR ---
PT DOSING IN LT LATERAL POSITION ON BED. SIDE RAILS UP X2.
--- NOTE | 2019-12-12 18:50 | NUR ---
DOSING ON BED, SIDE RAILS UP X2.
--- NOTE | 2019-12-12 20:28 | NUR ---
ASLEEP ON GURNEY, EVEN CHEST RISE & FALL NOTED, SIDE RAILS UP X2.
--- NOTE | 2019-12-12 21:00 | NUR ---
PT STILL ASLEEP, SIDE RAILS UP X2.
--- NOTE | 2019-12-12 21:32 | NUR ---
OBSERVED PT WALKING OUT OF ROOM TOWARDS EXIT, STATES "I'M GOING HOME". ACCOMPANIED PT TO DC AREA. PT UNWILLING TO ANSWER QUESTIONS. PT GAIT STEADY. SUBSTANCE ABUSE CLINIC LIST PROVIDED TO PT.
== END 2019-12-12 21:40 | disposition home or self-care (01) ==
LOC: ED 20:54
DX: F10.229 Alcohol dependence with intoxication, unspecified (principal); I48.91 Unspecified atrial fibrillation; I11.9 Hypertensive heart disease without heart failure; J44.9 Chronic obstructive pulmonary disease, unspecified; Y90.0 Blood alcohol level of less than 20 mg/100 ml
CPT/HCPCS: 99283

== ENCOUNTER 2020-02-05 10:07 | Emergency (ER) | payer MEDICARE ==
[~2020-02-05] VITALS: Ht 185.4 cm; Wt 110.0 kg
[2020-02-05] MEDS ORDERED: ONDANSETRON 2MG/ML, 2ML IVPush ONE (10:30)
[2020-02-05] MEDS ORDERED: DILTIAZEM 5 MG/ML, 5ML IV ONE (10:30)
[2020-02-05] MEDS ORDERED: SODIUM CHLORIDE FLUSH 10ML SYR IVF ONE (10:30)
[2020-02-05 10:54] LABS: BASOPHILS # (AUTO) 0.02 x10^3/uL (0-0.1); BASOPHILS % (AUTO) 0 % (0-1); EOSINOPHILS # (AUTO) 0.01 x10^3/uL (0-0.4); EOSINOPHILS % (AUTO) 0 % (1-7); LYMPHOCYTES # (AUTO) 1.17 x10^3/uL (1-3.4); LYMPHOCYTES % (AUTO) 11 % (22-44); MD NO; MEAN CORPUSCULAR HEMOGLOBIN 24.8 pg (27.5-34.5); MEAN CORPUSCULAR HGB CONC 31.9 g/dL (33.2-36.2); MEAN CORPUSCULAR VOLUME 77.8 fL (81-97); MONOCYTES # (AUTO) 1.05 x10^3/uL (0.2-0.8); MONOCYTES % (AUTO) 9 % (2-9); NEUTROPHILS # (AUTO) 8.86 x10^3/uL (1.8-6.8); NEUTROPHILS % (AUTO) 80 % (42-75); PLATELET COUNT 332 x10^3/uL (130-400); RED BLOOD COUNT 5.26 x10^6/uL (4.38-5.82); RED CELL DISTRIBUTION WIDTH 19.8 % (9.4-14.8)
[2020-02-05 10:58] LABS: INTERNATIONAL NORMALIZED RATIO 1.52 (0.93-1.1); PROTHROMBIN TIME 16.2 Seconds (9.6-11.5)
[2020-02-05] MEDS ORDERED: DILTIAZEM 5 MG/ML, 5ML ONE (11:00)
[2020-02-05 11:02] LABS: ALANINE AMINOTRANSFERASE 25 U/L (12-78); ALBUMIN 3.2 g/dL (3.4-5.0); ANION GAP 10 mmol/L (5-15); CALCIUM 8.7 mg/dL (8.5-10.1); CHLORIDE 102 mmol/L (98-107); CREATININE 0.84 mg/dL (0.7-1.3)
[2020-02-05] MEDS ORDERED: MORPHINE SULFATE 4 MG/ML, 1ML ONE ×2 (11:02→13:27)
[2020-02-05] MEDS ORDERED: ONDANSETRON 2MG/ML, 2ML ONE (11:02)
[2020-02-05] MEDS: MORPHINE SULFATE 4 MG/ML, 1ML IVPush PRN ×2 (11:06→13:34)
[2020-02-05 11:07] LABS: ALKALINE PHOSPHATASE 164 U/L (45-117); BILIRUBIN,TOTAL 1.4 mg/dL (0.2-1.0); TOTAL PROTEIN 7.2 g/dL (6.4-8.2); TROPONIN I < 0.015 ng/mL (0.000-0.045)
--- NOTE | 2020-02-05 11:07 | NUR ---
PIV access obtained. Pt medicated per MAR for c/o 8/10 CP and rapid heart rate. Pt denies other needs at this time.
--- NOTE | 2020-02-05 11:38 | NUR ---
CONSENT OBTAINED FOR CARDIOVERSION WITH PROCEDURAL SEDATION. ALL EQUIPMENT AVAILABLE AT BEDSIDE WITH CO2 MONITORING AND AMBU BAGS AND SUCTION READY. ESTABLISHED IV NOT PATENT. ATTEMPTED IV IN LEG, NO SUCCESS.
--- NOTE | 2020-02-05 12:33 | NUR ---
SEE PRECEDURAL NOTES FOR CARDIOVERSION. MD AWARE OF CURRENT BP AND ORDER RECEIVED FOR IV FLUIDS
[2020-02-05] MEDS ORDERED: SODIUM CHLORIDE 0.9% 1,000ML IVBOLUS ONE (13:00)
[2020-02-05] MEDS ORDERED: PROPOFOL 10 MG/ML, 20ML IVPush ONE (13:00)
--- NOTE | 2020-02-05 13:28 | NUR ---
IMPROVED BP WITH IV FLUIDS. PT REQUESTING MEDICATION FOR CONTINUED CP
--- NOTE | 2020-02-05 13:34 | NUR ---
Pt c/o continued CP, 04/04. Pt medicated per DEC and provided juice and crackers per request. Pt watching TV, denies other needs.
[2020-02-05] MEDS ORDERED: PROPOFOL 10 MG/ML, 20ML ONE (13:52)
--- NOTE | 2020-02-05 14:30 | NUR ---
PT IN NO DISTRESS, IMPROVEMENT IN CP. WATCHING TV. REMAINS NSR ON MONITOR
--- NOTE | 2020-02-05 14:43 | NUR ---
RPT EKG DONE BY NHUNG
[2020-02-05 15:16] VITALS: BP 143/84
--- NOTE | 2020-02-05 15:18 | NUR ---
AFTER MD RE-EVAL DISCHARGE PAPERS GIVEN AND PT CALLING FOR RIDE WITH [facility] [employer]. PT IN RESP LOBBY WHILE AWAITING RIDE.
== END 2020-02-05 15:21 | disposition home or self-care (01) ==
LOC: ED 10:14
DX: I48.0 Paroxysmal atrial fibrillation (principal); R07.89 Other chest pain; I11.0 Hypertensive heart disease with heart failure; I50.9 Heart failure, unspecified; J43.9 Emphysema, unspecified; R00.0 Tachycardia, unspecified; R94.31 Abnormal electrocardiogram [ECG] [EKG]; Z76.0 Encounter for issue of repeat prescription
CPT/HCPCS: 36415; 71045; 80053; 83690; 83880; 84484; 85025; 85610; 92960; 93005; 96374; 96375; 96376; 99285; J2270; J2405; J7030

== ENCOUNTER 2020-02-14 14:30 | Emergency (ER) | payer MEDICARE ==
[~2020-02-14] VITALS: Ht 190.5 cm; Wt 108.3 kg
--- NOTE | 2020-02-14 14:49 | NUR ---
pt placed in bed close to nursing station. nibp, cardiac, and o2 monitoring in place. iv access obtained and pt medicated per order with no changes. made aware. pt resting comfortably on gurney, 5 lead shows sinus rhythm with occasional pvc.
[2020-02-14] MEDS ORDERED: NALOXONE 0.4 MG/ML, 1ML IVPush ONE (15:00)
[2020-02-14 15:15] LABS: BASOPHILS # (AUTO) 0.07 x10^3/uL (0-0.1); BASOPHILS % (AUTO) 1 % (0-1); EOSINOPHILS # (AUTO) 0.05 x10^3/uL (0-0.4); EOSINOPHILS % (AUTO) 1 % (1-7); LYMPHOCYTES # (AUTO) 1.85 x10^3/uL (1-3.4); LYMPHOCYTES % (AUTO) 29 % (22-44); MD NO; MEAN CORPUSCULAR HEMOGLOBIN 25.3 pg (27.5-34.5); MEAN CORPUSCULAR HGB CONC 32.1 g/dL (33.2-36.2); MEAN CORPUSCULAR VOLUME 78.7 fL (81-97); MEAN PLATELET VOLUME 7.9 fL (7.4-10.4); MONOCYTES # (AUTO) 0.65 x10^3/uL (0.2-0.8); MONOCYTES % (AUTO) 10 % (2-9); NEUTROPHILS % (AUTO) 59 % (42-75); PLATELET COUNT 367 x10^3/uL (130-400); RED BLOOD COUNT 5.08 x10^6/uL (4.38-5.82); RED CELL DISTRIBUTION WIDTH 21.2 % (9.4-14.8)
[2020-02-14 15:21] LABS: ALANINE AMINOTRANSFERASE 65 U/L (12-78); ALBUMIN 3.5 g/dL (3.4-5.0); ANION GAP 11 mmol/L (5-15); CALCIUM 7.9 mg/dL (8.5-10.1); CHLORIDE 112 mmol/L (98-107)
[2020-02-14 15:26] LABS: ALKALINE PHOSPHATASE 128 U/L (45-117); BILIRUBIN,TOTAL 0.2 mg/dL (0.2-1.0); TOTAL PROTEIN 7.2 g/dL (6.4-8.2)
--- NOTE | 2020-02-14 17:54 | NUR ---
pt resting in bed. cardiac, o2 and nibp monitoring in place. equal chest rise and fall observed from door. pt is still difficuly to arouse but does change positions by self. will continue to monitor.
[2020-02-14] MEDS ORDERED: DEXTROSE 50%, 50ML SYRINGE ONE (18:26)
--- NOTE | 2020-02-14 18:31 | NUR ---
pt resting comfortably. equal chest rise and fall observed from door.
--- NOTE | 2020-02-14 18:59 | NUR ---
TASK RN: PT AWAKE, AMBULATING W/O DIFFICULTY, UPRIGHT AND STEADY GAIT. PIV D/C AND PT WAS ABLE TO DRESS HIMSELF INDEPENDENTLY. PT REQUESTED CAB VOUCHER, VOUCHER GIVEN AND [employer] CALLED.
[2020-02-14 19:00] VITALS: BP 114/65
--- NOTE | 2020-02-14 19:03 | NUR ---
TASK RN: Patient/Caregiver given discharge instructions and they have confirmed that they understand the instructions. Patient ambulatory with steady gait.
== END 2020-02-14 19:03 | disposition home or self-care (01) ==
LOC: EDBD → MERGE 15:01 → ED 15:01
DX: F10.220 Alcohol dependence with intoxication, uncomplicated (principal); R41.82 Altered mental status, unspecified; Y90.0 Blood alcohol level of less than 20 mg/100 ml
CPT/HCPCS: 36415; 80053; 80307; 85025; 96374; 99285; J2310

== ENCOUNTER 2020-02-14 22:06 | Emergency (ER) | payer MEDICARE ==
[~2020-02-14] VITALS: Ht 185.4 cm; Wt 107.7 kg
--- NOTE | 2020-02-14 22:30 | NUR ---
pt resting on gurney, applied monitors, siderail sup x2, call light within reach. provided pt with ice pack, medical office assistant instructor at bedside for right forhead wound irrigation
--- NOTE | 2020-02-14 22:41 | NUR ---
pt to ct
--- NOTE | 2020-02-14 22:57 | NUR ---
pt resting on gurney, A&O but drowsy, monitors in place, siderails up x2, call light within reach. laborer powerhouse at bedside
[2020-02-14] MEDS ORDERED: NEOSPORIN OINT. PKT 1 PACKET ONE (23:26)
--- NOTE | 2020-02-14 23:29 | NUR ---
bacitracin and bandaid applied to right forehead wound
[2020-02-14 23:52] VITALS: BP 138/74
--- NOTE | 2020-02-14 23:53 | NUR ---
pt resting on gurney, responds to repeated verbal response but drowsy, monitors in place, call light within reach
--- NOTE | 2020-02-15 00:14 | NUR ---
BREAK RN: PT IS SLEEPING ON [employer], CONNECTED TO MONITORING. VS STABLE. WILL CONTINUE TO MONITOR.
--- NOTE | 2020-02-15 00:39 | NUR ---
BREAK RN: PT TOOK OFF MONITORING AND WALKED OUT OF ROOM. STATES HE IS LEAVING AND DOES NOT WANT TX. EXPLAINED RISKS OF LEAVING AT THIS TIME, CAN NOT BE CONVINCED TO STAY. PT SIGNED AMA PAPERWORK, GIVEN TAXI VOUCHER. AMBULATORY W/ A STEADY GAIT OUT OF ED.
== END 2020-02-15 00:43 | disposition left against medical advice (07) ==
LOC: ED 22:20
DX: S00.211A Abrasion of right eyelid and periocular area, initial encounter (principal); S09.90XA Unspecified injury of head, initial encounter; F10.120 Alcohol abuse with intoxication, uncomplicated; J43.9 Emphysema, unspecified; I48.91 Unspecified atrial fibrillation; I11.0 Hypertensive heart disease with heart failure; I50.9 Heart failure, unspecified; Z72.9 Problem related to lifestyle, unspecified; Y90.0 Blood alcohol level of less than 20 mg/100 ml
CPT/HCPCS: 36415; 70450; 72125; 80307; 99285

== ENCOUNTER 2020-02-16 12:31 | Emergency (ER) | payer MEDICARE ==
[~2020-02-16] VITALS: Ht 185.4 cm; Wt 109.1 kg
[2020-02-16] MEDS ORDERED: ACETAMINOPHEN 500 MG TABLET ONE (12:50)
[2020-02-16] MEDS ORDERED: SODIUM CHLORIDE 0.9% 1,000ML IVBOLUS ONE ×2 (13:00→13:30)
[2020-02-16] MEDS ORDERED: ACETAMINOPHEN 500 MG TABLET PO ONE (13:00)
[2020-02-16] MEDS ORDERED: SODIUM CHLORIDE FLUSH 10ML SYR IVF ONE (13:00)
[2020-02-16 13:01] LABS: BASOPHILS # (AUTO) 0.04 x10^3/uL (0-0.1); BASOPHILS % (AUTO) 0 % (0-1); EOSINOPHILS # (AUTO) 0.05 x10^3/uL (0-0.4); EOSINOPHILS % (AUTO) 0 % (1-7); LYMPHOCYTES # (AUTO) 1.27 x10^3/uL (1-3.4); LYMPHOCYTES % (AUTO) 10 % (22-44); MD NO; MEAN CORPUSCULAR HEMOGLOBIN 25.4 pg (27.5-34.5); MEAN CORPUSCULAR HGB CONC 32.2 g/dL (33.2-36.2); MEAN PLATELET VOLUME 7.6 fL (7.4-10.4); MONOCYTES # (AUTO) 0.62 x10^3/uL (0.2-0.8); MONOCYTES % (AUTO) 5 % (2-9); NEUTROPHILS # (AUTO) 10.69 x10^3/uL (1.8-6.8); NEUTROPHILS % (AUTO) 84 % (42-75); PLATELET COUNT 464 x10^3/uL (130-400); RED BLOOD COUNT 4.96 x10^6/uL (4.38-5.82)
--- NOTE | 2020-02-16 13:04 | NUR ---
MD NOTIFIED OF PTS BP 69/34, 1L NS ORDERED AND STARTED PER MD.
[2020-02-16 13:11] LABS: INTERNATIONAL NORMALIZED RATIO 0.95 (0.93-1.1)
[2020-02-16 13:12] LABS: ALANINE AMINOTRANSFERASE 58 U/L (12-78); ALBUMIN 3.7 g/dL (3.4-5.0); ANION GAP 12 mmol/L (5-15); CALCIUM 8.7 mg/dL (8.5-10.1); CHLORIDE 106 mmol/L (98-107)
[2020-02-16] MEDS ORDERED: THIAMINE 100MG TABLET ONE (13:13)
--- NOTE | 2020-02-16 13:16 | NUR ---
PT TO CT AT THIS TIME.
[2020-02-16 13:17] LABS: ALKALINE PHOSPHATASE 169 U/L (45-117); BILIRUBIN,TOTAL 0.7 mg/dL (0.2-1.0); TOTAL PROTEIN 7.8 g/dL (6.4-8.2); TROPONIN I < 0.015 ng/mL (0.000-0.045)
[2020-02-16 13:25] LABS: PROTHROMBIN TIME 10.1 Seconds (9.6-11.5)
[2020-02-16] MEDS ORDERED: THIAMINE 100MG TABLET PO ONE (13:30)
--- NOTE | 2020-02-16 13:33 | NUR ---
pt back to room from ct at this time.
--- NOTE | 2020-02-16 14:27 | NUR ---
after 1l of ns bolus, pt's bp is improved. it is 103/61 at this time. edmd notified. pt's aox4. resps even and unlabored.
--- NOTE | 2020-02-16 14:38 | NUR ---
ICE CHIPS GIVEN AT THIS TIME. PT'S AOX4. RESPS EVEN AND UNLABORED.
[2020-02-16] MEDS ORDERED: KETOROLAC 30 MG/1 ML ONE (14:47)
[2020-02-16] MEDS ORDERED: KETOROLAC 30 MG/1 ML IVPush ONE (15:00)
--- NOTE | 2020-02-16 15:10 | NUR ---
pt refused tradol d/t allergy at this time. edmd notified.
--- NOTE | 2020-02-16 15:42 | NUR ---
ice chips given at this time per request.
[2020-02-16 15:57] VITALS: BP 139/70
--- NOTE | 2020-02-16 15:57 | NUR ---
JUICE PROVIDED PER REQUEST. PT'S AOX4. RESPS EVEN AND UNLABORED. BP/SPO2 MONITORS IN PLACE. CALL LIGHT WITHIN REACH.
--- NOTE | 2020-02-16 16:52 | NUR ---
PT IS ABLE TO AMB WITH STEADY GAIT.
--- NOTE | 2020-02-16 16:53 | NUR ---
Patient given discharge instructions and they have confirmed that they understand the instructions. Patient ambulatory with steady gait. cane and taxi voucher given at ct.
== END 2020-02-16 16:54 | disposition home or self-care (01) ==
LOC: ED 13:01
DX: S05.11XA Contusion of eyeball and orbital tissues, right eye, initial encounter (principal); S09.90XA Unspecified injury of head, initial encounter; R55 Syncope and collapse; I95.9 Hypotension, unspecified; R42 Dizziness and giddiness; M54.2 Cervicalgia; R51 Headache; I11.0 Hypertensive heart disease with heart failure; I50.9 Heart failure, unspecified; I48.91 Unspecified atrial fibrillation; J43.9 Emphysema, unspecified; Z95.1 Presence of aortocoronary bypass graft; X58.XXXA Exposure to other specified factors, initial encounter; Y93.89 Activity, other specified; Y92.89 Other specified places as the place of occurrence of the external cause; Y99.8 Other external cause status
CPT/HCPCS: 36415; 70450; 72125; 80053; 80307; 83735; 84484; 85025; 85610; 85730; 93005; 96360; 96361; 99285; J7030